=== PATIENT | male | born 1965 | race Hispanic/Latino ===

== ENCOUNTER 2017-05-29 15:46 | Observation (INO) | payer BC, OTHER ==
[~2017-05-29] VITALS: Ht 170.2 cm; Wt 82.4 kg
[~2017-05-29 15:46] MED LIST: ACET1TAB12 PO; ASPI-555 PO; CLIN150C10 PO; LISI10TA7 PO; METF500T6 PO; OSEL75 PO
[2017-05-29 16:13] LABS: BASOPHILS % (AUTO) 0.8 % (0.0-5.0); EOSINOPHILS % (AUTO) 0.6 % (0.0-8.0); HEMATOCRIT 51.2 % (42-54); LYMPHOCYTES % (AUTO) 24.9 % (21.0-51.0); MEAN CORPUSCULAR HEMOGLOBIN 29.5 pg (27.0-33.0); MEAN CORPUSCULAR HGB CONC 34.6 g/dL (32.0-36.0); MEAN CORPUSCULAR VOLUME 85.3 fL (79-99); MONOCYTES % (AUTO) 6.3 % (3.0-13.0); NEUTROPHILS % (AUTO) 67.4 % (40.0-77.0); PLATELET COUNT (AUTO) 257 K/uL (130-400); RED CELL DISTRIBUTION WIDTH 14.3 % (11.0-15.5); WHITE BLOOD COUNT (AUTO) 9.6 K/uL (4.8-10.8)
[2017-05-29] MEDS ORDERED: METOPROLOL TARTRATE 50 MG TAB ONE ×2 (16:16→19:44)
[2017-05-29] MEDS ORDERED: DIGOXIN 250 MCG/ML 2ML AMP ONE (16:16)
[2017-05-29 16:24] LABS: CARBON DIOXIDE 25 mmol/L (21-32); CHLORIDE 99 mmol/L (101-111); CREATININE 1.5 mg/dL (0.5-1.5); GLOMERULAR FILTR. RATE CALC 52 mL/min (>60); GLUCOSE,RANDOM 366 mg/dL (70-105); POTASSIUM 4.1 mmol/L (3.5-5.1); SODIUM SERUM 135 mmol/L (136-145); UREA NITROGEN, BLOOD 17 mg/dL (7-18)
[2017-05-29 16:25] LABS: INR 0.97 (0.85-1.15); PARTIAL THROMBOPLASTIN TIME 26.4 SEC (26.3-35.5); PROTHROMBIN TIME 10.2 SEC (9.6-11.6)
[2017-05-29 16:39] LABS: CREATINE KINASE MB < 0.5 ng/mL (0.5-3.6); CREATINE KINASE, TOTAL 82 U/L (21-232); THYROID STIMULATING HORMONE 1.23 uIU/mL (0.36-3.74)
[2017-05-29 16:54] LABS: B-TYPE NATRIURETIC PEPTIDE 16 pg/mL (0-100)
[2017-05-29] MEDS ORDERED: ENOXAPARIN SODIUM 100 MG/1 ML SQ ONE (19:43)
[2017-05-29] MEDS ORDERED: LISINOPRIL 5 MG TABLET ONE (19:43)
[2017-05-29] MEDS ORDERED: FAMOTIDINE 20MG TAB 20 MG TAB ONE (19:44)
[2017-05-29] MEDS ORDERED: POTASSIUM CHLORIDE 20MEQ/100ML 100 ML IV PRN (23:15)
[2017-05-29] MEDS ORDERED: POTASSIUM CHLORIDE 20 MEQ ERTAB PO PRN (23:15)
[2017-05-29] MEDS ORDERED: POTASSIUM CHLORIDE 10% ELIXIR 20 MEQ/15 ML UDCUP PO PRN (23:15)
[2017-05-29] MEDS ORDERED: HYDRALAZINE HCL 20 MG/ML VIAL IV PRN (23:15)
[2017-05-29] MEDS ORDERED: ACETAMINOPHEN 325 MG TAB PO PRN ×2 (23:15)
[2017-05-29] MEDS ORDERED: ONDANSETRON HCL 4 MG/2 ML VIAL IV PRN (23:15)
[2017-05-29] MEDS ORDERED: NITROGLYCERIN 0.4 MG SL TAB SL PRN (23:15)
[2017-05-29] MEDS ORDERED: LIDOCAINE HCL-MPF 1% 2ML VIAL IVP PRN (23:15)
[2017-05-29] MEDS ORDERED: ZOLPIDEM TARTRATE 5 MG TAB PO PRN (23:15)
[2017-05-29 23:50] VITALS: BP 142/92
[2017-05-30 00:49] LABS: CREATINE KINASE MB < 0.5 ng/mL (0.5-3.6); CREATINE KINASE, TOTAL 63 U/L (21-232); MYOGLOBIN 34 ng/mL (10-92); TROPONIN I < 0.04 ng/mL (0.00-0.06)
[2017-05-30] MEDS ORDERED: INSULIN HUMULIN R 100 UNIT/ML 3ML ONE (01:06)
[2017-05-30 04:03] VITALS: BP 100/62
[2017-05-30] MEDS ORDERED: METOPROLOL TARTRATE 1 MG/ML 5ML VIAL IV PRN (04:15)
[2017-05-30] MEDS ORDERED: ENOXAPARIN SODIUM 80 MG/0.8 ML SQ SCH (06:00)
[2017-05-30 06:30] LABS: HEMOGLOBIN A1C 9.2 % (4.0-6.0)
[2017-05-30 06:43] LABS: CREATINE KINASE MB < 0.5 ng/mL (0.5-3.6); CREATINE KINASE, TOTAL 58 U/L (21-232); DIGOXIN 0.68 ng/mL (0.50-2.00); MYOGLOBIN 53 ng/mL (10-92); TROPONIN I < 0.04 ng/mL (0.00-0.06)
[2017-05-30 07:00] VITALS: BP 131/84
[2017-05-30] MEDS: INSULIN HUMULIN R 100 UNIT/ML 3ML SQ SCH ×2 (07:03→11:41)
[2017-05-30] MEDS ORDERED: METOPROLOL TARTRATE 25 MG TAB PO SCH (09:00)
[2017-05-30] MEDS ORDERED: ASPIRIN 325 MG TABLET PO SCH (09:00)
[2017-05-30] MEDS ORDERED: ASPIRIN 81MG TAB.CHEW PO SCH (09:00)
[2017-05-30] MEDS ORDERED: FAMOTIDINE 20MG TAB 20 MG TAB PO SCH (09:00)
[2017-05-30] MEDS ORDERED: LISINOPRIL 20 MG TABLET PO SCH (09:00)
[2017-05-30 11:00] VITALS: BP 132/79
[2017-05-30] MEDS ORDERED: RIVAROXABAN 20 MG TABLET PO SCH (19:00)
== END 2017-05-30 15:43 | disposition home or self-care (01) ==
LOC: EDH 15:46 → INTOOBSV 16:45 → EDHIP 16:45 → 2AH 23:57
PROVIDERS: ADMIT Internal Medicine; ATTEND Internal Medicine
DX: I48.91 Unspecified atrial fibrillation (principal); E11.9 Type 2 diabetes mellitus without complications; I10 Essential (primary) hypertension; E78.5 Hyperlipidemia, unspecified; I50.31 Acute diastolic (congestive) heart failure; Z95.1 Presence of aortocoronary bypass graft; I25.10 Atherosclerotic heart disease of native coronary artery without angina pectoris; Z82.49 Family history of ischemic heart disease and other diseases of the circulatory system; Z88.2 Allergy status to sulfonamides
CPT/HCPCS: 36415 ×2; 80048; 80162; 82550 ×3; 82553 ×3; 82948 ×3; 83036; 83874 ×2; 83880; 84443; 84484 ×3; 85025; 85610; 85730; 93005 ×2; 93306; 96372; 99285; A4510; G0378 ×23; J1160; J1650 ×2; J1815